=== PATIENT | female | born 2000 | race African-American/Black ===

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

== ENCOUNTER 2021-07-21 15:11 | Emergency (ER) | payer OTHER, SELFPAY ==
[2021-07-21 15:28] VITALS: BP 141/104; PULSE 16; RESP 16; TEMP 36.9; O2SAT 100
[2021-07-21 16:36] VITALS: BP 141/89; PULSE 63; RESP 18; TEMP 36.8; O2SAT 99
--- NOTE | 2021-07-21 17:25 | ED.GENADULT ---
HPI - General Adult General Chief complaint: Upper Respiratory Infection Stated complaint: nausea/vela Time Seen by Provider: 07/21/21 16:28 Source: patient Mode of arrival: ambulatory Limitations: no limitations History of Present Illness HPI narrative: Patient is a 20-year-old female presenting with chief complaint of nausea and an episode of vomiting today. Patient reports that she was exposed to a Covid positive person last night and wants to be Covid tested. Patient denies any localized abdominal pain, fever, chills, shortness of breath or chest pain. Patient reports she is vaccinated. Related Data Allergies Allergy/AdvReac Type Severity Reaction Status Date / Time Penicillins Allergy Unknown Anaphylactic Verified 07/21/21 16:40 Shock Review of Systems Review of Systems: CONSTITUTIONAL: Denies fever, chills, or sweats. EYES: Denies visual changes, redness, or discharge. ENT: Denies rhinorrhea, congestion, sore throat, or otalgia. CARDIOVASCULAR: Denies chest pain, palpitations, or edema. RESPIRATORY: Denies cough or dyspnea. GASTROINTESTINAL: Reports nausea and an episode of vomiting denies abdominal pain or diarrhea. GENITOURINARY: Denies dysuria or hematuria. SKIN: Denies rash or itching. MUSCULOSKELETAL: Denies back pain, joint pain, or myalgia. NEUROLOGIC: Denies headache, numbness, dizziness, or weakness. PSYCHIATRIC: Denies anxiety or depression. [facility] Past Medical History Medical History (Updated 07/21/21 @ 17:30 by Dick Loza PA-C) History of anemia Social History Social History (System 03/23/21 @ 09:29 by Veronique Pereyra) Alcohol intake: current Substance use: current Substance use type: marijuana Gender identity (if verbalized by the patient): Female Exam Narrative: GENERAL: Well-appearing, well-nourished, and in no acute distress. HEAD: Normocephalic, atraumatic. EYES: PERRLA and EOMI. NECK: Supple. No adenopathy or masses. CHEST: Clear to auscultation. No respiratory distress. No wheezes rales or rhonchi HEART: Regular rate and rhythm. No murmur heard. Normal peripheral pulses. ABDOMEN: Soft, nontender, nondistended, normal active bowel sounds. No active vomiting or gaurding. EXTREMITIES: Normal range of motion. No edema. SKIN: Warm, dry, no rash. NEURO: No focal deficits. Alert and oriented x3. PSYCH: Normal mood and affect. Course Vital Signs Vital signs: Vital Signs Temperature 98.4 F 07/21/21 15:28 Pulse Rate 16 L 07/21/21 15:28 Respiratory Rate 16 07/21/21 15:28 Blood Pressure 141/104 H 07/21/21 15:28 Pulse Oximetry 100 07/21/21 15:28 Temperature 98.2 F 07/21/21 16:36 Pulse Rate 63 07/21/21 16:36 Respiratory Rate 18 07/21/21 16:36 Blood Pressure 141/89 H 07/21/21 16:36 Pulse Oximetry 99 07/21/21 16:36 Medical Decision Making MDM Narrative Medical decision making narrative: Patient reports that the only symptom present at this time is mild nausea. Patient has been informed that she will be Covid tested and she needs to quarantine herself as it takes 24 to 72 hours for symptoms to result. Patient has been given quarantine instructions and instructions to follow-up with primary care if needed. Patient has been instructed to return to emergency department if she has any localized abdominal pain, persistent vomiting, chest pain, shortness of breath or any other emergent symptoms. Vital Signs Vital Signs: Vital Signs Temperature 98.4 F 07/21/21 15:28 Pulse Rate 16 L 07/21/21 15:28 Respiratory Rate 16 07/21/21 15:28 Blood Pressure 141/104 H 07/21/21 15:28 Pulse Oximetry 100 07/21/21 15:28 Temperature 98.2 F 07/21/21 16:36 Pulse Rate 63 07/21/21 16:36 Respiratory Rate 18 07/21/21 16:36 Blood Pressure 141/89 H 07/21/21 16:36 Pulse Oximetry 99 07/21/21 16:36 Discharge Plan Discharge Clinical Impression: Nausea, Close exposure to COVID-19 virus Patient Disposition: Home, Self-Care
[2021-07-21 18:00] VITALS: BP 107/92; PULSE 77; RESP 12; O2SAT 98
[2021-07-22 17:01] LABS: SARS-CoV-2 RNA PCR Negative
== END 2021-07-21 18:00 | disposition home or self-care (01) ==
LOC: ANHED 17:35
PROVIDERS: Physician Assistant; Emergency Provider Emergency Medicine
DX: R11.0 Nausea (principal); Z20.822 Contact with and (suspected) exposure to COVID-19; Z86.2 Personal history of diseases of the blood and blood-forming organs and certain disorders involving the immune mechanism
CPT/HCPCS: 99283; C9803; U0003; U0005

== ENCOUNTER 2023-06-25 21:12 | Emergency (ER) | payer MEDICAID, SELFPAY ==
[2023-06-25 21:34] VITALS: BP 141/82; PULSE 106; RESP 20; TEMP 36.7; O2SAT 98
--- NOTE | 2023-06-26 00:06 | PC.NURSE ---
Called x 1 from [facility] with no answer.
== END 2023-06-26 01:19 | disposition left against medical advice (07) ==
DX: T16.2XXA Foreign body in left ear, initial encounter (principal)
CPT/HCPCS: 99199